=== PATIENT | male | born 1955 | race Caucasian/White ===

== ENCOUNTER → 2016-07-14 | Outpatient (CLI) | payer OTHER ==
[~2016-07-14] MED LIST: HYZAAR 100-21 TABLET PO; NORVASC5 MG PO; PLAVIX75 MG PO; PRAVACHOL40 MG PO; TOPROL XL50 MG PO
== END | disposition home or self-care (01) ==
LOC: MRI 09:55 → RAD 11:00 → MRI 11:00
DX: I63.9 Cerebral infarction, unspecified (principal)
CPT/HCPCS: 70553

== ENCOUNTER → 2016-12-30 | Outpatient (CLI) | payer OTHER | END | disposition home or self-care (01) | LOC: RAD 10-27 13:30 → MRI 10:09 → RAD 11:00 → MRI 11:00 | DX: R90.89 Other abnormal findings on diagnostic imaging of central nervous system (principal) | CPT/HCPCS: 70553 ==

== ENCOUNTER → 2017-08-09 | Outpatient (CLI) | payer OTHER | END | disposition home or self-care (01) | LOC: RAD 10:06 | DX: G93.89 Other specified disorders of brain (principal); I67.89 Other cerebrovascular disease | CPT/HCPCS: 70553 ==

== ENCOUNTER → 2018-02-14 | Outpatient (CLI) | payer OTHER | END | disposition home or self-care (01) | LOC: RAD 09:14 | DX: G93.89 Other specified disorders of brain (principal) | CPT/HCPCS: 70553 ==